=== PATIENT | female | born 1955 | race Caucasian/White ===

== ENCOUNTER 2020-04-02 09:56 | Outpatient (NON) | payer SELFPAY ==
[2020-04-03 01:06] LABS: SARS-CoV-2 RNA PCR Negative
== END 2020-04-02 09:57 ==
PROVIDERS: PCP Family Medicine; Visit Provider Family Medicine
DX: R50.9 Fever, unspecified (principal); Z20.828 Contact with and (suspected) exposure to other viral communicable diseases
CPT/HCPCS: 87635; C9803; U0003